=== PATIENT | female | born 1980 | race African-American/Black ===

== ENCOUNTER 2020-11-18 07:02 | Inpatient (IN) | payer MEDICAID ==
[~2020-11-18] VITALS: Ht 157.5 cm; Wt 74.5 kg
[2020-11-18] MEDS ORDERED: METHYLPREDNISOLONE SOD SUCC 125 MG/2 ML VIAL IV STA (07:12)
[2020-11-18] MEDS ORDERED: IPRATROPIUM BROMIDE (0.02%) 0.5MG/2.5ML NEB HHN STA ×2 (07:12→09:14)
[2020-11-18] MEDS ORDERED: ALBUTEROL (0.083%) 2.5MG/3ML NEB HHN SCH (07:30)
[2020-11-18 08:21] LABS: MEAN CORPUSCULAR HEMOGLOBIN 22.9 pg (28.0-32.0); MEAN CORPUSCULAR VOLUME 75.6 fL (81.0-99.0); MEAN PLATELET VOLUME 8.1 fl (7.4-10.4); PLATELET 286 x1000/uL (130-400); RED BLOOD CELL COUNT 4.37 mill/uL (4.2-5.4); RED CELL DISTRIBUTION WIDTH 19.8 % (11.6-14.6)
[2020-11-18 08:22] LABS: CHLORIDE 102 mEq/L (98-107)
[2020-11-18 08:30] LABS: CREATINE KINASE 97 IU/L (26-192)
[2020-11-18 08:34] LABS: PROTHROMBIN TIME 10.5 sec (9.6-11.0)
[2020-11-18 08:50] LABS: CLARITY URINE CLEAR (CLEAR); COLOR URINE YELLOW (YELLOW); KETONES URINE NEGATIVE (NEGATIVE); LEUKOCYTE ESTERASE URINE TRACE (NEGATIVE); NITRITE URINE NEGATIVE (NEGATIVE); OCCULT BLOOD URINE NEGATIVE (NEGATIVE); PH URINE 6.5 (4.5-8.0); PROTEIN URINE NEGATIVE (NEGATIVE); SPECIFIC GRAVITY URINE 1.014 (1.005-1.030); UROBILINOGEN URINE 0.2 E.U./dL (0.2-1.0)
[2020-11-18] MEDS ORDERED: ALBUTEROL (0.083%) 2.5MG/3ML NEB HHN STA (09:14)
[2020-11-18] MEDS ORDERED: MAGNESIUM 2 G PREMIX 50 ML IV ONE (09:15)
[2020-11-18 09:26] LABS: METHADONE URINE SCREEN NEGATIVE (NEGATIVE); OPIATES URINE SCREEN NEGATIVE (NEGATIVE)
[2020-11-18 09:27] LABS: *AMPHETAMINES SCREEN URINE NEGATIVE (NEGATIVE); *BARBITURATES SCREEN URINE NEGATIVE (NEGATIVE); *BENZODIAZEPINES SCREEN URINE NEGATIVE (NEGATIVE); *COCAINE SCREEN URINE NEGATIVE (NEGATIVE); CANNABINOID URINE SCREEN NEGATIVE (NEGATIVE); PHENCYCLIDINE URINE SCREEN NEGATIVE (NEGATIVE)
[2020-11-18 09:43] LABS: HCG SCREEN NEGATIVE
[2020-11-18] MEDS ORDERED: PIPERACILLIN/TAZOBACTAM 3.375GM/50ML PREMIX IV ONE (09:45)
[2020-11-18] MEDS ORDERED: PIPERACILLIN/TAZ 3.375G PREMIX 50 ML IV NR (10:00)
[2020-11-18] MEDS ORDERED: POTASSIUM CHLORIDE 20MEQ TABLET SR PO NR (10:00)
[2020-11-18] MEDS ORDERED: KETOROLAC 15MG/ML VIAL IV ONE (10:00)
[2020-11-18] MEDS ORDERED: VANCOMYCIN 1 G PREMIX 200 ML IV NR (10:30)
[2020-11-18 11:06] LABS: PLATELET ESTIMATE NORMAL
[2020-11-18] MEDS ORDERED: IPRATROPIUM/ALBUTEROL 0.5-3(2.5)MG/3ML NEB NEB PRN (13:15)
[2020-11-18] MEDS ORDERED: ACETAMINOPHEN 325MG TABLET PO PRN (13:15)
[2020-11-18] MEDS ORDERED: DOCUSATE SODIUM 100MG CAPSULE PO PRN (13:15)
[2020-11-18] MEDS: AMLODIPINE 10MG TABLET PO SCH (13:15)
[2020-11-18] MEDS ORDERED: MAGNESIUM/ALUMINUM HYDROXIDE/SIMETHICONE 30ML UDC PO PRN (13:15)
[2020-11-18] MEDS ORDERED: CLONIDINE 0.1MG TABLET PO PRN (13:15)
[2020-11-18] MEDS: METHYLPREDNISOLONE SOD SUCC 125 MG/2 ML VIAL IV SCH ×2 (13:15→19:32)
[2020-11-18] MEDS ORDERED: ONDANSETRON HCL 4MG/2ML INJ IV PRN (13:15)
[2020-11-18] MEDS ORDERED: IPRATROPIUM/ALBUTEROL 0.5-3(2.5)MG/3ML NEB NEB SCH (13:15)
[2020-11-18] MEDS: ENOXAPARIN 40MG/0.4ML SYR SUBCUT SCH (14:00)
[2020-11-18] MEDS ORDERED: LEVOFLOXACIN 500MG PREMIX 100 ML IV SCH (15:30)
[2020-11-18] MEDS: GUAIFENESIN 200MG/10ML SUGAR FREE UDC PO PRN (16:04)
[2020-11-18 16:40] VITALS: BP 131/83
[2020-11-18] MEDS: HYDROCODONE/ACETAMINOPHEN 5/325MG TABLET PO PRN (16:59)
[2020-11-18] MEDS ORDERED: ALBU6.7H9 INH (17:12)
[2020-11-18] MEDS ORDERED: DIPH25CA83 PO (17:12)
[2020-11-18 17:15] VITALS: BP 131/83
[2020-11-18] MEDS ORDERED: ALBUTEROL 6.7GM HFA INHALER ORI SCH (18:00)
[2020-11-18 19:57] VITALS: BP 136/78
[2020-11-18] MEDS: ZOLPIDEM TARTRATE 5MG TABLET PO PRN (20:22)
[2020-11-18 23:46] VITALS: BP 118/71
[2020-11-19] VITALS (11 sets, daily range): BP systolic 98–123; BP diastolic 55–81
[2020-11-19] MEDS: METHYLPREDNISOLONE SOD SUCC 125 MG/2 ML VIAL IV SCH ×4 (01:06→20:07)
[2020-11-19] MEDS: GUAIFENESIN 200MG/10ML SUGAR FREE UDC PO PRN ×2 (01:24→16:11)
[2020-11-19] MEDS: HYDROCODONE/ACETAMINOPHEN 5/325MG TABLET PO PRN ×2 (01:27→20:06)
[2020-11-19] MEDS: IPRATROPIUM/ALBUTEROL 0.5-3(2.5)MG/3ML NEB HHN SCH ×4 (01:49→21:47)
[2020-11-19 06:45] LABS: CHLORIDE 102 mEq/L (98-107)
[2020-11-19 06:46] LABS: HEMOGLOBIN. 8.9 g/dL (12.0-16.0); MEAN CORPUSCULAR VOLUME 75.2 fL (81.0-99.0); PLATELET 290 x1000/uL (130-400); RED BLOOD CELL COUNT 3.86 mill/uL (4.2-5.4); RED CELL DISTRIBUTION WIDTH 19.6 % (11.6-14.6)
[2020-11-19] MEDS: AMLODIPINE 10MG TABLET PO SCH (08:58)
[2020-11-19] MEDS: LEVOFLOXACIN 500MG PREMIX 100 ML IV SCH (13:48)
[2020-11-19] MEDS: ENOXAPARIN 40MG/0.4ML SYR SUBCUT SCH (13:48)
[2020-11-19] MEDS ORDERED: GUAIFENESIN 600MG ER TABLET PO SCH (21:00)
[2020-11-19 21:45] LABS: PLATELET ESTIMATE NORMAL
[2020-11-20] VITALS (12 sets, daily range): BP systolic 106–138; BP diastolic 58–82
[2020-11-20] MEDS: METHYLPREDNISOLONE SOD SUCC 125 MG/2 ML VIAL IV SCH ×3 (00:52→21:46)
[2020-11-20] MEDS: ZOLPIDEM TARTRATE 5MG TABLET PO PRN ×2 (01:11→21:56)
[2020-11-20] MEDS: IPRATROPIUM/ALBUTEROL 0.5-3(2.5)MG/3ML NEB HHN SCH ×5 (02:35→20:36)
[2020-11-20] MEDS: AMLODIPINE 10MG TABLET PO SCH (09:41)
[2020-11-20] MEDS: GUAIFENESIN-DM 200MG-20MG/10ML UDC PO PRN (09:47)
[2020-11-20] MEDS ORDERED: FLUT1AER7 INH (13:55)
[2020-11-20] MEDS: LEVOFLOXACIN 500MG PREMIX 100 ML IV SCH (14:17)
[2020-11-20] MEDS: ENOXAPARIN 40MG/0.4ML SYR SUBCUT SCH (14:18)
[2020-11-20] MEDS: HYDROCODONE/ACETAMINOPHEN 5/325MG TABLET PO PRN (20:31)
[2020-11-21] MEDS: IPRATROPIUM/ALBUTEROL 0.5-3(2.5)MG/3ML NEB HHN SCH ×4 (01:20→13:49)
[2020-11-21 01:35] VITALS: BP 100/74
[2020-11-21 03:35] VITALS: BP 104/57
[2020-11-21 05:35] VITALS: BP 108/68
[2020-11-21] MEDS: METHYLPREDNISOLONE SOD SUCC 125 MG/2 ML VIAL IV SCH (05:47)
[2020-11-21] MEDS: GUAIFENESIN-DM 200MG-20MG/10ML UDC PO PRN (06:07)
[2020-11-21 07:35] VITALS: BP 115/74
[2020-11-21] MEDS: AMLODIPINE 10MG TABLET PO SCH (09:11)
[2020-11-21 10:00] VITALS: BP 126/75
[2020-11-21] MEDS: LEVOFLOXACIN 500MG PREMIX 100 ML IV SCH (13:00)
[2020-11-21] MEDS ORDERED: METHYLPREDNISOLONE SOD SUCC 40 MG/ML VIAL IV SCH (14:00)
[2020-11-21] MEDS: ENOXAPARIN 40MG/0.4ML SYR SUBCUT SCH (14:00)
[2020-11-21 14:27] VITALS: BP 126/75
== END 2020-11-21 15:16 | disposition home or self-care (01) | DRG 720 ==
LOC: ER 07:02 → 7WST 09:47 → EDBEDREQ 09:51 → EDBEDREQSVC 09:51 → ENRESERV 15:25 → 3WST 23:39
PROVIDERS: ADMIT Hospitalist; ATTEND Hospitalist
DX: A41.9 Sepsis, unspecified organism (principal); J45.901 Unspecified asthma with (acute) exacerbation; J18.9 Pneumonia, unspecified organism; J20.9 Acute bronchitis, unspecified; J96.00 Acute respiratory failure, unspecified whether with hypoxia or hypercapnia; Z20.822 Contact with and (suspected) exposure to COVID-19; I10 Essential (primary) hypertension; F17.210 Nicotine dependence, cigarettes, uncomplicated; E87.6 Hypokalemia; S92.424A Nondisplaced fracture of distal phalanx of right great toe, initial encounter for closed fracture; W20.8XXA Other cause of strike by thrown, projected or falling object, initial encounter; Z82.5 Family history of asthma and other chronic lower respiratory diseases; Z82.49 Family history of ischemic heart disease and other diseases of the circulatory system; Y93.89 Activity, other specified; Y92.89 Other specified places as the place of occurrence of the external cause; Y99.8 Other external cause status
CPT/HCPCS: 36415; 71045; 73630; 80053; 80305; 81003; 82550; 82728; 83605; 83615; 83735; 84145; 84484; 84703; 85025; 85384; 86140; 93005; 93970; 94640; 99291; J1650; J1885; J1956; J2543; J2930; J3370; J3475; U0003